=== PATIENT | female | born 2000 | race American Indian/Alaskan Native ===

== ENCOUNTER 2022-01-15 15:48 | Emergency (ER) | payer OTHER ==
--- NOTE | 2022-01-15 19:39 | Emergency Department Report ---
ED Allergic Reaction HPI - General Chief complaint: Allergic Reaction Stated complaint: ALLERGIC REACTION Time Seen by Provider: 01/15/22 19:25 Source: patient, EMS Mode of arrival: Ambulatory Limitations: No Limitations - History of Present Illness Initial Comments: This is a 21-year-old -[place] female who presents to the emergency room for evaluation post allergic reaction around 2:30 PM. 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 She reports initially feeling stomach pain and swelling in her throat. She also still reports feeling lightheaded. Patient states she had to use 2 EpiPen's. Patient states symptoms have resolved but she just wanted to follow- up. Denies difficulty swallowing, drooling, rash, or swelling. MD Complaint: allergic reaction - Related Data Previous Rx's Medication Instructions Recorded Last Taken Type EPINEPHrine [Epipen 2-Geoff] 0.3 mg IJ ONCE #1 ml 01/15/22 Unknown Rx Prednisone [predniSONE 10 mg 10 mg PO .TAPER #1 tab 01/15/22 Unknown Rx (6-Day Pack, 21 Tabs)] Allergies Allergy/AdvReac Type Severity Reaction Status Date / Time egg Allergy Anaphylaxis Verified 01/15/22 16:02 Fish Containing Products Allergy Anaphylaxis Verified 01/15/22 16:02 nut - unspecified Allergy Anaphylaxis Verified 01/15/22 16:02 shellfish derived Allergy Anaphylaxis Verified 01/15/22 16:02 ED Review of Systems ROS: Stated complaint: ALLERGIC REACTION Other details as noted in HPI Constitutional: denies: chills, fever ENT: denies: throat pain Respiratory: denies: cough, shortness of breath, wheezing Cardiovascular: denies: chest pain, palpitations Gastrointestinal: abdominal pain Skin: denies: rash, lesions Neurological: denies: headache, weakness, paresthesias Psychiatric: denies: anxiety, depression ED Past Medical Hx - Medications Home Medications: Home Medications Medication Instructions Recorded Confirmed Last Taken Type EPINEPHrine [Epipen 2-Geoff] 0.3 mg IJ ONCE #1 ml 01/15/22 Unknown Rx Prednisone [predniSONE 10 mg 10 mg PO .TAPER #1 tab 01/15/22 Unknown Rx (6-Day Pack, 21 Tabs)] ED Physical Exam - General Limitations: No Limitations General appearance: alert, in no apparent distress - ENT ENT exam: Present: normal exam, normal orophraynx, mucous membranes moist - Neck Neck exam: Present: normal inspection - Respiratory Respiratory exam: Present: normal lung sounds bilaterally. Absent: respiratory distress - Cardiovascular Cardiovascular Exam: Present: regular rate, normal rhythm. Absent: systolic murmur, diastolic murmur, rubs, gallop - Neurological Exam Neurological exam: Present: alert, oriented X3 - Psychiatric Psychiatric exam: Present: normal affect, normal mood - Skin Skin exam: Present: warm, dry, intact, normal color. Absent: rash ED Course Vital Signs 01/15/22 15:58 Temperature 98.3 F Pulse Rate 119 H Respiratory 18 Rate Blood Pressure 116/78 [Left] O2 Sat by Pulse 100 Oximetry ED Medical Decision Making - Medical Decision Making This is a 21-year-old -[place] female who presents to the emergency room status post allergic reaction around 2:30 PM today. Vitals are stable. Negative respiratory symptoms such as wheezing, respiratory distress, or cardiov ascular symptoms. Uvula midline without swelling. Airway is patent. Denies nausea, vomiting, or diarrhea. Start EpiPen, Benadryl, and steroids. Discharged home with strict return precautions. Follow-up with primary care doctor in 1 to 2 days. Critical care attestation.: If time is entered above; I have spent that time in minutes in the direct care of this critically ill patient, excluding procedure time. ED Disposition Clinical Impression: Allergic reaction Qualifiers: Encounter type: initial encounter Qualified Code(s): T78.40XA - Allergy, unspecified, initial encounter Anaphylactic reaction Qualifiers: Encounter type: initial encounter Qualified Code(s): T78.2XXA - Anaphylactic shock, unspecified, initial encounter Disposition: 01 HOME / SELF CARE / HOMELESS Is pt being admited?: No Condition: Stable Instructions: Allergies, Adult, [id number] Prescriptions: EPINEPHrine [Epipen 2-Geoff] 0.3 mg IJ ONCE #1 ml Prednisone [predniSONE 10 mg (6-Day Pack, 21 Tabs)] 10 mg PO .TAPER #1 tab Referrals: HAILE HOGUE MD [Staff Physician] - 3-5 Days Time of Disposition: 19:47
[2022-01-15 20:35] VITALS: BP 105/62
== END 2022-01-15 20:35 | disposition home or self-care (01) ==
LOC: ED 15:48
DX: T78.2XXA Anaphylactic shock, unspecified, initial encounter (principal); T78.40XA Allergy, unspecified, initial encounter; X58.XXXA Exposure to other specified factors, initial encounter; Z79.899 Other long term (current) drug therapy; Z91.012 Allergy to eggs; Z91.018 Allergy to other foods; Z91.013 Allergy to seafood
CPT/HCPCS: 99283